=== PATIENT | female | born 1960 | race Caucasian/White ===

== ENCOUNTER 2016-10-26 01:05 | Emergency (ER) | payer BC ==
[~2016-10-26] VITALS: Ht 165.1 cm; Wt 61.0 kg
[~2016-10-26 01:05] MED LIST: ASCORBIC ACID500 M3 PO; ASPIRIN81 M2 PO; CALCIUM CARBO1000 MG PO; CHLOROQUINE PH250 MG PO; CIPROFLOXACIN500 M1 PO; CRESTOR5 MG PO; ERGOCALCIF50000 UNIT PO; FAMOTIDINE20 MG PO; NAPROSYN500 MG PO; PREDNISONE2.5 MG PO; RESTASIS 01 DROP/0.4 BOTH EYES; SAVELLA50 MG PO; SIMETHICONE80 MG PO; TOPAMAX50 MG PO; TYLENOL PM1 CAPLET PO; VERAMIST BOTH NARES; VITAMIN B12-FO1 EACH PO; ZOFRAN4 MG PO; ZOLMITRIPTAN ODT5 MG PO; ZOMIG5 M1 NS
[2016-10-26 01:49] LABS: HEMATOCRIT 39.1 % (36.0-46.0); MCHC 33.2 G/DL (30.0-36.0); MCV 84.3 FL (83-99); MEAN PLAT.VOLUME 10.2 uM^3 (9.5-12.4); PLATELET COUNT 270 K/uL (156-360); RBC DIS.WIDTH-CV 14.7 % (11.8-14.6); RBC DIS.WIDTH-SD 44.2 % (39-53); RED BLOOD COUNT 4.64 M/uL (3.80-5.20); WHITE BLOOD COUNT 9.2 K/uL (4.1-10.2)
[2016-10-26 02:02] LABS: CHLORIDE 108 mEq/L (99-109); POTASSIUM 5.2 mEq/L (3.7-5.4); SODIUM 142 mEq/L (136-147)
[2016-10-26 02:04] LABS: GLUCOSE 88 mg/dL (70-99)
[2016-10-26 02:05] LABS: ANION GAP 6 MEQ/L (2-14)
[2016-10-26 02:08] LABS: GFR ESTIMATE (CALCULATED) > 59 mL/min/; UREA NITROGEN (BUN) 26 mg/dL (9-23)
[2016-10-26 02:09] LABS: TROP-I INTERPRETATION NEGATIVE; TROPONIN-I < 0.01 ng/mL (0.0-0.30)
[2016-10-26 08:00] LABS: TROP-I INTERPRETATION NEGATIVE; TROPONIN-I < 0.01 ng/mL (0.0-0.30)
[2016-10-26] MEDS ORDERED: CRESTOR40 MG PO (09:21)
[2016-10-26] MEDS ORDERED: TOPAMAX50 MG PO (09:22)
[2016-10-26] MEDS ORDERED: COENZYME Q10100 M1 PO (09:23)
[2016-10-26] MEDS ORDERED: BENADRYL ITCH118 ML TP (09:23)
[2016-10-26] MEDS ORDERED: ARTIFICIAL TEAR15 M1 BOTH EYES (09:23)
[2016-10-26] MEDS ORDERED: LORATADINE10 M2 PO (09:24)
[2016-10-26] MEDS ORDERED: VERAMYST10 GM BOTH NARES (09:24)
[2016-10-26] MEDS ORDERED: RECLAST5 MG/100 M IV (09:25)
[2016-10-26] MEDS ORDERED: VITAMIN B12 100MCG PO (09:25)
[2016-10-26] MEDS ORDERED: TESSALON PERLE100 MG PO (10:45)
[2016-10-26] MEDS ORDERED: ZITHROMAX Z-PA250 MG PO (10:45)
[2016-10-26] MEDS ORDERED: ROBITUSSIN NIG118 ML PO (10:45)
[2016-10-26 11:16] VITALS: BP 125/60
== END 2016-10-26 11:21 | disposition home or self-care (01) ==
LOC: EME 01:05
PROVIDERS: Nurse Practitioner Family
DX: J21.9 Acute bronchiolitis, unspecified (principal); M54.9 Dorsalgia, unspecified; I25.10 Atherosclerotic heart disease of native coronary artery without angina pectoris; M32.9 Systemic lupus erythematosus, unspecified; Z79.82 Long term (current) use of aspirin; Z91.040 Latex allergy status; Z88.5 Allergy status to narcotic agent; Z88.0 Allergy status to penicillin; Z88.6 Allergy status to analgesic agent; M19.90 Unspecified osteoarthritis, unspecified site; I73.00 Raynaud's syndrome without gangrene; Z87.01 Personal history of pneumonia (recurrent)
CPT/HCPCS: 71020; 71275; 80048; 84484; 85027; 93005; 99281; 99285

== ENCOUNTER → 2017-04-07 | Outpatient (CLI) | payer BC ==
[~2017-04-07] VITALS: Ht 165.1 cm; Wt 57.3 kg
[~2017-04-07] MED LIST changes: +ARTIFICIAL TEAR15 M1 BOTH EYES; +BENADRYL ITCH118 ML TP; +COENZYME Q10100 M1 PO; +CRESTOR40 MG PO; +LORATADINE10 M2 PO; +RECLAST5 MG/100 M IV; +ROBITUSSIN NIG118 ML PO; +TESSALON PERLE100 MG PO; +VERAMYST10 GM BOTH NARES; +VITAMIN B12 100MCG PO; +ZITHROMAX Z-PA250 MG PO
[2017-04-07 15:09] VITALS: BP 134/62
== END | disposition home or self-care (01) ==
LOC: IVINF 15:00
DX: M85.80 Other specified disorders of bone density and structure, unspecified site (principal); Z88.5 Allergy status to narcotic agent; Z88.0 Allergy status to penicillin; Z88.8 Allergy status to other drugs, medicaments and biological substances; Z91.040 Latex allergy status
CPT/HCPCS: J3489